=== PATIENT | female | born 1995 | race Two or more races ===

== ENCOUNTER 2016-10-22 10:30 | Emergency (ER) | payer MEDICAID, OTHER ==
[~2016-10-22] VITALS: Ht 152.4 cm; Wt 58.5 kg
[2016-10-22 10:37] VITALS: BP 116/78
[2016-10-22] MEDS ORDERED: diphenhdrAMINE HCL 50 MG/1 ML VL IM ONE (11:15)
[2016-10-22] MEDS ORDERED: methylPREDNISolone SOD SUCC 125 MG/2 ML VL IM ONE (11:15)
[2016-10-22] MEDS ORDERED: EPINEPHrine HCL 1 MG/1 ML AMP SC ONE (11:15)
== END 2016-10-22 11:55 | disposition home or self-care (01) ==
LOC: ER 10:34
DX: T78.40XA Allergy, unspecified, initial encounter (principal)
CPT/HCPCS: 96372; 99284; J0171; J1200; J2930